=== PATIENT | male | born 1975 | race Caucasian/White ===

== ENCOUNTER 2018-09-13 16:08 | Observation (INO) ==
[2018-09-13] MEDS ORDERED: Aspirin 325 MG Tablet PO ONE (16:20)
--- NOTE | 2018-09-13 16:44 | XR ---
EXAM DATE: 09/13/2018 4:20 PM EDT AGE/SEX: 43 years / Male INDICATIONS: Chest pain. CLINICAL DATA: This is the patient's initial encounter. Patient reports that signs and symptoms have been present for 1 day and indicates a pain score of 8/10. MEDICAL/SURGICAL HISTORY: None. . Stents in heart. COMPARISON: No prior exams available for comparison. FINDINGS: A single AP view of the chest demonstrates the lungs to be symmetrically aerated without evidence of mass, infiltrate or effusion. The cardiomediastinal contours are unremarkable. Osseous structures a re intact. CONCLUSION: 1. No acute cardiopulmonary disease. Electronically signed by: Carmelo Alvarez MD 09/13/2018 4:43 PM EDT
[2018-09-13 17:07] LABS: Baso # (Auto) 0.1 th/mm3 (0.0-0.2); Baso % (Auto) 1.2 % (0.0-2.0); Eos # (Auto) 0.8 th/mm3 (0.0-0.4); Eos % (Auto) 9.3 % (0.0-4.0); Hematocrit 37.2 % (39.0-51.0); Hemoglobin 13.2 gm/dL (13.0-17.0); Lymph # (Auto) 1.6 th/mm3 (1.0-4.8); Lymph % (Auto) 18.7 % (9.0-44.0); Mean Corpuscular HGB Conc 35.6 % (32.0-36.0); Mean Corpuscular Hemoglobin 35.3 pg (27.0-34.0); Mean Corpuscular Volume 99.2 fL (80.0-100.0); Mean Platelet Volume 7.9 fL (7.0-11.0); Mono # (Auto) 0.4 th/mm3 (0.0-0.9); Mono % (Auto) 4.7 % (0.0-8.0); Neut # (Auto) 5.5 th/mm3 (1.8-7.7); Neut % (Auto) 66.1 % (16.0-70.0); Platelet Count 203 th/mm3 (150-450); Red Blood Count 3.75 mil/mm3 (4.50-5.90); Red Cell Distribution Width 13.5 % (11.6-17.2); White Blood Count 8.3 th/mm3 (4.0-11.0)
[2018-09-13 17:20] LABS: Activated Partial Thrombo Time 29.4 sec (24.3-30.1)
[2018-09-13 17:22] LABS: D-Dimer 0.61 mg/L FEU (0.00-0.50)
[2018-09-13 17:30] LABS: Albumin 3.3 g/dL (3.4-5.0); Anion Gap 9 meq/L (5-15); Aspartate Aminotransferase 18 U/L (15-37); Blood Urea Nitrogen 5 mg/dL (7-18); Calcium 8.4 mg/dL (8.5-10.1); Chloride 108 meq/L (98-107); Glomerular Filtration Rate 79 mL/min (>89); Glucose,Random 111 mg/dL (74-106); Potassium 3.7 meq/L (3.5-5.1); Sodium 141 meq/L (136-145)
[2018-09-13 17:36] LABS: Alanine Aminotransferase 23 U/L (12-78); Alkaline Phosphatase 96 U/L (45-117); Creatine Kinase 150 U/L (39-308); Total Protein 7.2 g/dL (6.4-8.2)
[2018-09-13 17:48] LABS: Creatine Kinase MB 1.4 ng/mL (0.5-3.6)
--- NOTE | 2018-09-13 18:01 | ED ---
HPI General Chief Complaint: Chest Pain Stated Complaint: chest pain Time Seen by Provider: 09/13/18 16:17 Source: patient Mode of arrival: ambulatory Limitations: no limitations History of Present Illness HPI narrative: 43-year-old male the presents to the ED for evaluation of chest pain. Patient comes here by private vehicle for evaluation of this. Per patient he is from [place] and on December of last year he had a stent put on his heart. Per patient is was done in [place]. Per patient he came here 2 weeks ago looking for work. Per patient he has been having chest pains on and off since yesterday. He denies any injury or trauma. He denies any drug use. He states that the pain causes some shortness of breath. Per patient he is concerned because of the history of stents to his hand. He denies any headache. Per patient he does take blood pressure and cholesterol medications. Has not taken anything for this. He did stated that he took a baby aspirin today. Denies any urinary bowel movement issues. No trauma. No fevers chills or sweats. No cough or runny nose. Related Data Home Medications Medication Instructions Recorded Confirmed aspirin [Aspirin Low Dose] 81 mg PO DAILY 09/13/18 09/13/18 atorvastatin 40 mg PO DAILY 09/13/18 09/13/18 Allergies Allergy/AdvReac Type Severity Reaction Status Date / Time Fish Containing Products Allergy Anaphylaxis Verified 09/13/18 16:32 Review of Systems ROS: all other systems reviewed are negative [facility] Medical History Medical History High cholesterol (Acute) Myocardial infarction (Acute) Social History Social History Substance History: Active Abuse Second Hand Smoke Exposure: No Smoking Status: Current every day smoker Tobacco Type: Cigarettes How Often Do You Have a Drink Containing Alcohol: Monthly or less Recent Travel in [facility] within the Last 8 Weeks: No Recent Out of Country Travel within the Last 8 Weeks: No Substance Abuse Detail Marijuana: Substance Use Status: Active Immunization History Tetanus Immunization: <5 Years Exam Narrative Exam Narrative: GENERAL: well appearing SKIN: Focused skin assessment warm/dry. HEAD: Atraumatic. Normocephalic. EYES: Pupils equal and round. No scleral icterus. No injection or drainage. ENT: No nasal bleeding or discharge. Mucous membranes pink and moist. Tongue is midline. No uvula deviation. NECK: Trachea midline. No JVD. CARDIOVASCULAR: Regular rate and rhythm. No murmur appreciated. RESPIRATORY: No accessory muscle use. Clear to auscultation. Breath sounds equal bilaterally. GASTROINTESTINAL: Abdomen soft, non-tender, nondistended. Hepatic and splenic margins not palpable. MUSCULOSKELETAL: No obvious deformities. No clubbing. No cyanosis. No edema. Full range of motion of the upper and lower extremities bilaterally. 2+ pulses bilaterally. NEUROLOGICAL: Awake and alert. No obvious cranial nerve deficits. Motor grossly within normal limits. Normal speech. PSYCHIATRIC: Appropriate mood and affect; insight and judgment normal. Course Initial Documented Vital Signs Temperature 97.8 F 09/13/18 16:14 Pulse Rate 91 H 09/13/18 16:14 Respiratory Rate 20 09/13/18 16:14 Blood Pressure 137/88 09/13/18 16:14 Pulse Oximetry 98 09/13/18 16:14 Last Documented Vital Signs Temperature 98.3 F 09/14/18 04:25 Pulse Rate 45 L 09/14/18 04:25 Respiratory Rate 19 09/14/18 04:25 Blood Pressure 116/67 09/14/18 04:25 Pulse Oximetry 96 09/14/18 04:25 Medical Decision Making MDM Narrative Medical decision making narrative: 43-year-old male the presents to the ED for evaluation of chest pain. Patient was properly examined and was found to have signs and symptoms consistent with chest pain. Labs and imaging ordered. Patient given nitro and aspirin. Labs and imaging showed no sign of acute disease alert and positive d-dimer. CTA was done. CTA does show chronic disease. At this time recommendations for admission for the chest pain center for further evaluation and treatment. Patient agrees with admission. Patient was admitted to chest pain center by hi. Orders placed by hi. Medical Screen Exam Complete: Yes Emergency Medical Condition: Yes Differential Diagnosis Differential Diagnosis: Chest pain versus typical chest pain versus PE versus ACS Medical Records Medical records reviewed: Yes I reviewed the patient's medical records. Lab Data Lab results reviewed: Yes I reviewed the patient's lab results. Lab results narrative: trop and CKMB negative d-dimmer elevated Result diagrams: 09/13/18 16:31 09/13/18 16:31 Lab Results 09/13/18 09/13/18 09/13/18 Range/Units 16:31 16:31 16:31 WBC 8.3 (4.0-11.0) th/mm3 RBC 3.75 L (4.50-5.90) mil/mm3 Hgb 13.2 (13.0-17.0) gm/dL Hct 37.2 L (39.0-51.0) % MCV 99.2 (80.0-100.0) fL MCH 35.3 H (27.0-34.0) pg MCHC 35.6 (32.0-36.0) % RDW 13.5 (11.6-17.2) % Plt Count 203 (150-450) th/mm3 MPV 7.9 (7.0-11.0) fL Neut % (Auto) 66.1 (16.0-70.0) % Lymph % (Auto) 18.7 (9.0-44.0) % [place] % (Auto) 4.7 (0.0-8.0) % Eos % (Auto) 9.3 H (0.0-4.0) % Baso % (Auto) 1.2 (0.0-2.0) % Neut # (Auto) 5.5 (1.8-7.7) th/mm3 Lymph # (Auto) 1.6 (1.0-4.8) th/mm3 [place] # (Auto) 0.4 (0.0-0.9) th/mm3 Eos # (Auto) 0.8 H (0.0-0.4) th/mm3 Baso # (Auto) 0.1 (0.0-0.2) th/mm3 WBC Differential . Differential Comment Auto diff final PT 10.0 (9.8-11.6) sec INR 1.0 Ratio APTT 29.4 (24.3-30.1) sec D-Dimer Quant (PE/DVT) 0.61 H (0.00-0.50) mg/L FEU Sodium 141 (136-145) meq/L Potassium 3.7 (3.5-5.1) meq/L Chloride 108 H (98-107) meq/L Carbon Dioxide 24.0 (21.0-32.0) meq/L Anion Gap 9 (5-15) meq/L BUN 5 L (7-18) mg/dL Creatinine 1.04 (0.60-1.30) mg/dL Estimated GFR 79 L (>89) mL/min Random Glucose 111 H (74-106) mg/dL Calcium 8.4 L (8.5-10.1) mg/dL Total Bilirubin 0.3 (0.2-1.0) mg/dL AST 18 (15-37) U/L ALT 23 (12-78) U/L Alkaline Phosphatase 96 (45-117) U/L Total Creatine Kinase 150 (39-308) U/L CK-MB (CK-2) 1.4 (0.5-3.6) ng/mL Troponin I Less than 0.02 L (0.02-0.05) ng/mL B-Natriuretic Peptide (0-100) pg/mL Total Protein 7.2 (6.4-8.2) g/dL Albumin 3.3 L (3.4-5.0) g/dL 09/13/18 09/13/18 09/13/18 Range/Units 16:31 19:45 23:40 WBC (4.0-11.0) th/mm3 RBC (4.50-5.90) mil/mm3 Hgb (13.0-17.0) gm/dL Hct (39.0-51.0) % MCV (80.0-100.0) fL MCH (27.0-34.0) pg MCHC (32.0-36.0) % RDW (11.6-17.2) % Plt Count (150-450) th/mm3 MPV (7.0-11.0) fL Neut % (Auto) (16.0-70.0) % Lymph % (Auto) (9.0-44.0) % [place] % (Auto) (0.0-8.0) % Eos % (Auto) (0.0-4.0) % Baso % (Auto) (0.0-2.0) % Neut # (Auto) (1.8-7.7) th/mm3 Lymph # (Auto) (1.0-4.8) th/mm3 [place] # (Auto) (0.0-0.9) th/mm3 Eos # (Auto) (0.0-0.4) th/mm3 Baso # (Auto) (0.0-0.2) th/mm3 WBC Differential Differential Comment PT (9.8-11.6) sec INR Ratio APTT (24.3-30.1) sec D-Dimer Quant (PE/DVT) (0.00-0.50) mg/L FEU Sodium (136-145) meq/L Potassium (3.5-5.1) meq/L Chloride (98-107) meq/L Carbon Dioxide (21.0-32.0) meq/L Anion Gap (5-15) meq/L BUN (7-18) mg/dL Creatinine (0.60-1.30) mg/dL Estimated GFR (>89) mL/min Random Glucose (74-106) mg/dL Calcium (8.5-10.1) mg/dL Total Bilirubin (0.2-1.0) mg/dL AST (15-37) U/L ALT (12-78) U/L Alkaline Phosphatase (45-117) U/L Total Creatine Kinase 133 107 (39-308) U/L CK-MB (CK-2) (0.5-3.6) ng/mL Troponin I Less than 0.02 L Less than 0.02 L (0.02-0.05) ng/mL B-Natriuretic Peptide 5 (0-100) pg/mL Total Protein (6.4-8.2) g/dL Albumin (3.4-5.0) g/dL Imaging Data Attestation: I personally reviewed and interpreted this imaging study as follows : Radiologist's impression: Chest X-Ray 09/13/18 16:20 CONCLUSION: 1. No acute cardiopulmonary disease. Chest CTA 09/13/18 17:39 CONCLUSION: 1. No CT evidence for pulmonary artery embolism as questioned. 2. Right lung base granuloma and calcified hilar nodes consistent with prior granulomatous disease. 3. Patchy mild groundglass opacities in the lower lobes bilaterally which may reflect atelectasis. 4. Prominent coronary artery calcifications. ECG Data Attestation: I personally reviewed and interpreted this ECG as follows: Interpretation: EKG shows sinus rhythm with no sign of acute ischemia and arrhythmia. Read by me and attending. Ventricular rate of 61 bpm, OK interval of [address] elevations noted on EKG. Discharge Plan Discharge Disposition Patient Disposition: 30 Still Patient Discharge Details Diagnosis: Chest pain Physicians Team ED Provider: Heather Jeronimo ED Midlevel Provider: Robert Potter Primary Care Provider: Primary Care Kimberly June Attending Provider: Brad Nick ED Status: Left Department Discharge Information Discharge Date/Time: 09/13/18 20:42
[2018-09-13] MEDS ORDERED: Morphine Inj 4 MG/ML Vial IV.PUSH ONE (18:33)
--- NOTE | 2018-09-13 19:04 | CT ---
EXAM DATE: 09/13/2018 5:47 PM EDT AGE/SEX: 43 years / Male INDICATIONS: Chest pain. CLINICAL DATA: This is the patient's initial encounter. Patient reports that signs and symptoms have been present for 1 day and indicates a pain score of 8/10. MEDICAL/SURGICAL HISTORY: Cardiovascular disease. None. RADIATION DOSE: 9.58 CTDI (mGy) COMPARISON: [facility], CHEST 1V SINGLE AP, 09/13/2018. . TECHNIQUE: Volumetric scanning was performed using a multi-row detector CT scanner during bolus infu dontae of 75 ml Omnipaque 350 (iohexol) nonionic water-soluble contrast as a single exam dose. The tanvi a was post processed with a variety of visualization algorithms including full volume maximum intensi ty projection and sliding thin slab reformation. Using automated exposure control and adjustment of the mA and/or kV according to patient size, radiation dose was kept as low as reasonably achievable t o obtain optimal diagnostic quality images. DICOM format image data is available electronically for review and comparison. FINDINGS: Pulmonary Arteries: No filling defects are seen in the pulmonary arteries through the segmental vess els. The main pulmonary artery is normal in diameter. Lung: Patchy mild groundglass opacities in the lower lobes bilaterally. Densely calcified granuloma at the right lung base. Pleura: No effusion, significant pleural thickening or pneumothorax. Mediastinum: Heart is unremarkable without pericardial effusion. Prominent coronary artery calcifica tions. Multiple calcified and subcentimeter mediastinal and hilar nodes.. Osseous Structures: No abnormal focal lytic or blastic bony lesions. Other: Visulaized upper abdomen is unremarkable. CONCLUSION: 1. No CT evidence for pulmonary artery embolism as questioned. 2. Right lung base granuloma and calcified hilar nodes consistent with prior granulomatous disease. 3. Patchy mild groundglass opacities in the lower lobes bilaterally which may reflect atelectasis. 4. Prominent coronary artery calcifications. Electronically signed by: Carmelo Alvarez MD 09/13/2018 7:03 PM EDT
[2018-09-13] MEDS ORDERED: Morphine Inj 4 MG/ML Vial IV.PUSH PRN (19:14)
[2018-09-13] MEDS ORDERED: Acetaminophen 500 MG Tablet PO PRN (19:14)
[2018-09-13 20:46] LABS: Creatine Kinase 133 U/L (39-308)
[2018-09-14 00:22] LABS: Creatine Kinase 107 U/L (39-308)
--- NOTE | 2018-09-14 10:31 | P.HPCA ---
History of Present Illness Primary Care Physician: No Primary Care Physician Chief Complaint: Chest pain History of Present Illness: This is a 43-year-old male with history of CAD status post stenting December 2016 while in [place] that presents to ED with complaint of chest discomfort that concerned him secondary to being similar to the pressure had when eating stenting. States that he had an OH in December 17 first episode of discomfort since then was last Friday. 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 Developed similar pressure less about 30 minutes which really concerned him but the discomfort resolved after stopping activity and he just forgot about it. Discomfort recurred 2 days ago while also at work and would last about 20 minutes to an hour but recurred a few times. Then yesterday the discomfort occurred and lasted all day without resolution. Current discomfort is 4 out of 10. Worse level is 8 out of 10. Denies associated shortness breath, nausea, diaphoresis. Cannot recall having stress testing since the stent. Continues to smoke cigarettes but has decreased the amount to about half pack a day. Hyperlipidemia, CAD with stent, tobacco abuse. Denies diabetes. Currently smoking about 1/2 pack of cigarettes daily for 3 months but was smoking 2 pack a day for 20 years. Denies alcohol. Smokes marijuana regularly. Denies family history of CAD. - Diagnosis (1) Chest pain (2) CAD (coronary artery disease) (3) History of heart artery stent (4) Hypertension (5) Hyperlipidemia (6) Tobacco abuse Review of Systems General: Patient denies fevers, chills, and recent travel. HEENT: Patient denies headache, sore throat, difficulty swallowing. Cardiovascular: Has the chest discomfort as mentioned above. Denies sensation of heart beating rapidly or irregularly. No syncope. Respiratory: Denies shortness of breath or inspirational chest discomfort. Denies coughing wheezing or hemoptysis. GI: Patient denies nausea, vomiting, diarrhea, abdominal pain, bloody stools. Musculoskeletal: Patient denies joint pain or edema. Denies calf pain or edema. Neurovascular: Patient denies numbness, tingling, weakness in extremities. Denies headache. Endocrine: Denies polyuria and polydipsia. Hematologic: Denies easy bruising. Skin: Denies rash or itching. PMFSH - History History Provided By: Patient - Medical History Medical History: Medical History (Last Reviewed 09/13/18 @ 17:59 by AILYN Peng) High cholesterol Myocardial infarction - Tobacco History Second Hand Smoke Exposure: No Tobacco Use In Past 30 Days: Yes Smoking Status: Current every day smoker Tobacco Type: Cigarettes - Alcohol History How Often Do You Have a Drink Containing Alcohol: Monthly or less - Substance Use History Substance History: Active Abuse - Substance Use Type Marijuana Status: Active Route Used: Inhalation Reason for Use: Get High - Travel History Recent Travel in the [place] Within the Last 8 Weeks: No Recent Travel Out of the Country Within the Last 8 Weeks: No - Immunization History Tetanus Immunization: <5 Years Medications and Allergies Active Medications: Active Medications Acetaminophen (Tylenol) 500 mg PO Q4H PRN PRN Reason: HEADACHE Hydrocodone Bitart/Acetaminophen ([place] 7.5/325) 1 tab PO Q4H PRN PRN Reason: PAIN SCALE 1 TO 7 Aspirin (Ecotrin) 81 mg PO DAILY [facility], [facility]1983 Last Admin: 09/14/18 10:03 Dose: 81 mg Atorvastatin Calcium (Lipitor) 40 mg PO DAILY [facility], [facility]1983 Last Admin: 09/14/18 10:03 Dose: 40 mg Morphine Sulfate (Morphine Inj) 2 mg IV.PUSH Q4H PRN PRN Reason: PAIN SCALE 8 TO 10 Last Admin: 09/13/18 22:50 Dose: 2 mg Ondansetron HCl (Zofran Inj) 4 mg IV.PUSH Q6H PRN PRN Reason: NAUSEA Sodium Chloride (Ns Flush) 2 ml IV.FLUSH UNSCH PRN PRN Reason: FLUSH AFTER USING IV ACCESS Sodium Chloride (Ns Flush) 2 ml IV.FLUSH BID [facility], [facility]1983 Last Admin: 09/14/18 08:56 Dose: 2 ml Sodium Chloride (Ns Flush) 2 ml IV.FLUSH PRN PRN PRN Reason: FLUSH AFTER USING IV ACCESS Allergies Allergy/AdvReac Type Severity Reaction Status Date / Time Fish Containing Products Allergy Anaphylaxis Verified 09/13/18 16:32 Home Medications Medication Instructions Recorded Confirmed Type aspirin [Aspirin Low Dose] 81 mg PO DAILY 09/13/18 09/13/18 History atorvastatin 40 mg PO DAILY 09/13/18 09/13/18 History Exam Vital signs: Vital Signs 09/13/18 16:14 09/13/18 16:16 09/13/18 17:03 Temperature 97.8 F Pulse Rate 91 H 62 Respiratory Rate 20 Blood Pressure 137/88 136/91 H Pulse Oximetry 98 99 99 09/13/18 18:40 09/13/18 20:00 09/13/18 23:00 Temperature 98.0 F Pulse Rate 65 54 L 65 Respiratory Rate 18 18 Blood Pressure 117/73 122/70 Pulse Oximetry 98 96 09/14/18 00:00 09/14/18 01:10 09/14/18 03:36 Temperature 98.4 F Pulse Rate 48 L 45 L Respiratory Rate 18 15 Blood Pressure 119/59 L Pulse Oximetry 97 09/14/18 03:51 09/14/18 04:25 09/14/18 08:00 Temperature 98.3 F 98.2 F Pulse Rate 45 L 45 L 43 L Respiratory Rate 19 18 Blood Pressure 116/67 133/70 Pulse Oximetry 96 96 09/14/18 08:13 Temperature Pulse Rate Respiratory Rate Blood Pressure Pulse Oximetry 96 Intake & Output 09/13/18 09/14/18 09/14/18 18:59 06:59 18:59 Weight 77.564 kg 77.58 kg Other: Date of Last Bowel Movement 09/13/18 Weight On Admission 77.564 kg Narrative: GENERAL: This is a well-nourished, well-developed patient, in no apparent distress. Patient speaks in clear complete sentences. Patient is pleasant. HEENT: Head is atraumatic and normocephalic. Neck is supple without lymphadenopathy and trachea is midline. No JVD or carotid bruits. CARDIOVASCULAR: Regular rate and rhythm without murmurs, gallops, or rubs. RESPIRATORY: Clear to auscultation. Breath sounds equal bilaterally. No wheezes , rales, or rhonchi. Chest wall is nontender. No use of accessory muscles. GASTROINTESTINAL: Abdomen is nontender, nondistended. Abdomen soft. No obvious pulsatile mass or bruit. No CVA tenderness. Strong femoral pulses bilaterally. Normal bowel sounds in all quadrants. MUSCULOSKELETAL: Patient is moving upper and lower extremities freely. No calf tenderness or edema, no Homans sign. Strong pulses in upper and lower extremities. NEUROLOGICAL: Patient is alert and oriented. Cranial nerves 2-12 are grossly intact. No focal deficits and speech is clear. SKIN: No rash and turgor is normal. Results 09/13/18 16:31 09/13/18 16:31 Cardiac Enzymes 09/13/18 09/13/18 09/13/18 Range/Units 16:31 16:31 19:45 AST 18 (15-37) U/L CK-MB (CK-2) 1.4 (0.5-3.6) ng/mL Troponin I Less than 0.02 L Less than 0.02 L (0.02-0.05) ng/mL B-Natriuretic Peptide 5 (0-100) pg/mL 09/13/18 Range/Units 23:40 AST (15-37) U/L CK-MB (CK-2) (0.5-3.6) ng/mL Troponin I Less than 0.02 L (0.02-0.05) ng/mL B-Natriuretic Peptide (0-100) pg/mL Coagulation 09/13/18 09/13/18 Range/Units 16:31 16:31 PT 10.0 (9.8-11.6) sec APTT 29.4 (24.3-30.1) sec B-Natriuretic Peptide 5 (0-100) pg/mL CBC 09/13/18 Range/Units 16:31 WBC 8.3 (4.0-11.0) th/mm3 RBC 3.75 L (4.50-5.90) mil/mm3 Hgb 13.2 (13.0-17.0) gm/dL Hct 37.2 L (39.0-51.0) % Plt Count 203 (150-450) th/mm3 Neut # (Auto) 5.5 (1.8-7.7) th/mm3 Lymph # (Auto) 1.6 (1.0-4.8) th/mm3 [place] # (Auto) 0.4 (0.0-0.9) th/mm3 Eos # (Auto) 0.8 H (0.0-0.4) th/mm3 Baso # (Auto) 0.1 (0.0-0.2) th/mm3 Comprehensive Metabolic Panel 09/13/18 Range/Units 16:31 Sodium 141 (136-145) meq/L Potassium 3.7 (3.5-5.1) meq/L Chloride 108 H (98-107) meq/L Carbon Dioxide 24.0 (21.0-32.0) meq/L BUN 5 L (7-18) mg/dL Creatinine 1.04 (0.60-1.30) mg/dL Calcium 8.4 L (8.5-10.1) mg/dL AST 18 (15-37) U/L ALT 23 (12-78) U/L Alkaline Phosphatase 96 (45-117) U/L Total Protein 7.2 (6.4-8.2) g/dL Albumin 3.3 L (3.4-5.0) g/dL Intake and Output 09/13/18 09/14/18 09/14/18 22:59 06:59 14:59 Other: Date of Last Bowel Movement 09/13/18 Weight 77.564 kg 77.58 kg Weight On Admission 77.564 kg - Imaging and Cardiology Imaging: Impressions Chest X-Ray 09/13/18 16:20 CONCLUSION: 1. No acute cardiopulmonary disease. Chest CTA 09/13/18 17:39 CONCLUSION: 1. No CT evidence for pulmonary artery embolism as questioned. 2. Right lung base granuloma and calcified hilar nodes consistent with prior granulomatous disease. 3. Patchy mild groundglass opacities in the lower lobes bilaterally which may reflect atelectasis. 4. Prominent coronary artery calcifications. EKG interpretations - EKG EKG shows: bradycardia (EKGs are sinus bradycardia without significant ST segment depressions or elevations.) Caprini VTE Risk Assessment Caprini VTE Risk Assessment: No/Low Risk (score <= 1) Caprini Risk Assessment Model: Point Value = 1 Point Value = 2 Point Value = 3 Point Value = 5 Age 41-60 Minor surgery BMI > 25 kg/m2 Swollen legs Varicose veins or History of unexplained or recurrent spontaneous Oral contraceptives or hormone replacement Sepsis (< 1 month) Serious lung disease, including pneumonia (< 1 month) Abnormal pulmonary function Acute myocardial infarction Congestive heart failure (< 1 month) History of inflammatory bowel disease Medical patient at bed rest Age 61-74 Arthroscopic surgery Major open surgery (> 45 min) Laparoscopic surgery (> 45 min) Malignancy Confined to bed (> 72 hours) Immobilizing plaster cast Central venous access Age >= 75 History of VTE Family history of VTE Factor V Leiden Prothrombin [id number] Lupus anticoagulant Anticardiolipin antibodies Elevated serum homocysteine Heparin-induced thrombocytopenia Other congenital or acquired thrombophilia Stroke (< 1 month) Elective arthroplasty Hip, pelvis, or leg fracture Acute spinal cord injury (< 1 month) Prophylaxis Regimen: Total Risk Factor Score Risk Level Prophylaxis Regimen 0-1 Low Early ambulation 2 Moderate Order ONE of the following: *Sequential Compression Device (SCD) *Heparin 5000 units SQ BID 3-4 Higher Order ONE of the following medications: *Heparin 5000 units SQ TID *Enoxaparin/Lovenox 40 mg SQ daily (WT < 150 kg, CrCl > 30 mL/min) *Enoxaparin/Lovenox 30 mg SQ daily (WT < 150 kg, CrCl > 10-29 mL/min) *Enoxaparin/Lovenox 30 mg SQ BID (WT < 150 kg, CrCl > 30 mL/min) AND/OR *Sequential Compression Device (SCD) 5 or more Highest Order ONE of the following medications: *Heparin 5000 units SQ TID (Preferred with Epidurals) *Enoxaparin/Lovenox 40 mg SQ daily (WT < 150 kg, CrCl > 30 mL/min) *Enoxaparin/Lovenox 30 mg SQ daily (WT < 150 kg, CrCl > 10-29 mL/min) *Enoxaparin/Lovenox 30 mg SQ BID (WT < 150 kg, CrCl > 30 mL/min) AND *Sequential Compression Device (SCD) Assessment and Plan - Assessment (1) Chest pain Code(s): R07.9 - Chest pain, unspecified Status: Acute (2) CAD (coronary artery disease) Code(s): I25.10 - Atherosclerotic heart disease of solomon coronary artery without angina pectoris Status: Acute (3) History of heart artery stent Code(s): Z95.5 - Presence of coronary angioplasty implant and graft Status: Acute (4) Hypertension Code(s): I10 - Essential (primary) hypertension Status: Acute (5) Hyperlipidemia Code(s): E78.5 - Hyperlipidemia, unspecified Status: Acute (6) Tobacco abuse Code(s): Z72.0 - Tobacco use Status: Acute - Plan * Chest pain: Patient has had serial cardiac enzymes and EKGs for ruling out purposes. He will be seen by Dr. Nick of cardiology and chest pain center. He will undergo a Lexiscan. Further plan pending results. But if negative will be discharged home with instructions to follow-up PCP and follow-up with outpatient wind operations supervisor. Return to ED for interval issues. * CAD: Patient has history of stent. To be reassessed with stress testing. * Hyperlipidemia: Continue medication. * Tobacco abuse: Patient counseled on importance of smoking cessation. Patient is stable at this time. He is agreeable to this plan. H&P: Quality - VTE Deep Vein Thrombosis/Pulmonary Embolism Present on Admission: No (1) Chest pain Qualifiers: Chest pain type: other chest pain Qualified Code(s): R07.89 - Other chest pain; R07.8 - Other chest pain
[2018-09-14] MEDS ORDERED: Regadenoson Inj 0.4 MG/5 ML Syringe IV.PUSH ONE (10:59)
[2018-09-14 11:53] VITALS: BP 129/70; PULSE 47; RESP 16; TEMP 98; O2SAT 100
--- NOTE | 2018-09-14 12:14 | NM ---
EXAM DATE: 09/14/2018 10:45 AM EDT AGE/SEX: 43 years / Male INDICATIONS:Angina. Myocardial infarction Chest pain with dyspnea. CLINICAL DATA: This is the patient's initial encounter. Patient reports that signs and symptoms have been present for 2 days and indicates a pain score of 6/10. MEDICAL/SURGICAL HISTORY: Hypercholesterolemia. Coronary artery stent. COMPARISON: No prior exams available for comparison. DOSE: 8.8 mCi Tc 99m Myoview at rest 25.4 mCi [id number] at stress 0.4 mg Lexiscan STRESS SYMPTOMS: Dyspnea and chest pain. EJECTION FRACTION: 52 % TECHNIQUE: The patient underwent pharmacologic stress with infusion of prescribed dose. Continuous ECG tracing was monitored during stress. Gated SPECT imaging was performed after stress and conventi onal SPECT imaging was performed at rest. The examination was performed on a SPECT/CT scanner, both attenuation and non-corrected datasets were reviewed. FINDINGS: Distribution: The maximum perfused segment at stress is in the lateral wall. Perfusion Study: The pattern of perfusion at stress is within normal limits. Gated Study: There are intact wall motion and wall thickening without hypokinetic or dyskinetic segm ents. The ejection fraction is calculated at 52%. RISK CATEGORY: Low (<1% Annual Motality Rate) CONCLUSION: 1. No definite reversible perfusion defects are identified to suggest stress-induced myocardial isch emia. Electronically signed by: Bobby Vanegas MD 09/14/2018 12:13 PM EDT
--- NOTE | 2018-09-14 14:17 | TR ---
Date Performed: 09/14/2018 Time Performed: 10:55:29 DOCTOR: Brad Nick DRUG LIST: CLINICAL HISTORY: REASON FOR TEST: CHEST PAIN REASON FOR ENDING: OBSERVATION: CONCLUSION: COMMENTS: Lexiscan stress test was performed under standard four minute protocol. Radionuclide was injected one minute prior to ending the test. No electrocardiographic abormalities were present t o suggest ischemia. Nuclear imaging and interpretation are pending.
--- NOTE | 2018-09-14 14:22 | ECG ---
Date Performed: 09/13/2018 Time Performed: 22:11:38 PTAGE: 43 years EKG: SINUS BRADYCARDIA POSSIBLE RIGHT VENTRICULAR CONDUCTION DELAY BORDERLINE ECG PREVIOUS TRACING : 09/13/2018 19.49 Since previous tracing, no significant change noted DOCTOR: Brad Nick Interpretating Date/Time 09/14/2018 14:21:52
--- NOTE | 2018-09-14 14:23 | ECG ---
Date Performed: 09/13/2018 Time Performed: 19:49:54 PTAGE: 43 years EKG: SINUS BRADYCARDIA POSSIBLE RIGHT VENTRICULAR CONDUCTION DELAY BORDERLINE ECG PREVIOUS TRACING : 09/13/2018 16.28 Since previous tracing, no significant change noted DOCTOR: Brad Nick Interpretating Date/Time 09/14/2018 14:22:41
--- NOTE | 2018-09-14 14:25 | ECG ---
Date Performed: 09/13/2018 Time Performed: 16:28:48 PTAGE: 43 years EKG: Sinus rhythm WITH SINUS ARRHYTHMIA POSSIBLE RIGHT VENTRICULAR CONDUCTION DELAY BORDERLINE ECG NO PREVIOUS TRACING DOCTOR: Brad Nick Interpretating Date/Time 09/14/2018 14:24:12
== END 2018-09-14 14:47 | disposition home or self-care (01) ==
LOC: NEPC 16:08 → NEDA 16:08 → NEPGCP 20:44

== ENCOUNTER 2018-09-22 16:48 | Inpatient (IN) ==
[2018-09-22] MEDS ORDERED: Aluminum/Magnesium/Simethacone Susp 30 ML UDC PO PRN (19:50)
[2018-09-22] MEDS ORDERED: Bisacodyl 10 MG Supp RECTAL PRN (19:50)
[2018-09-23] MEDS: Senna/Docusate Sodium 8.6/50 MG Tablet PO SCH ×2 (00:39→08:26)
[2018-09-23 07:45] LABS: Anion Gap 4 meq/L (5-15); Blood Urea Nitrogen 15 mg/dL (7-18); Calcium 8.4 mg/dL (8.5-10.1); Carbon Dioxide 27.7 meq/L (21.0-32.0); Chloride 107 meq/L (98-107); Glomerular Filtration Rate Greater Than 89 mL/min (>89); Glucose,Random 81 mg/dL (74-106); Potassium 4.2 meq/L (3.5-5.1); Sodium 139 meq/L (136-145)
[2018-09-23 07:47] LABS: Cholesterol 155 mg/dL (120-200); Triglycerides 100 mg/dL (42-150)
[2018-09-23 07:49] LABS: Chol/HDL Ratio 3.71 Ratio; HDL Cholesterol 41.7 mg/dL (40.0-60.0); LDL Cholesterol,Calculated 93 mg/dL (0-99)
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
[2018-09-23 16:48] LABS: Baso # (Auto) 0.1 th/mm3 (0.0-0.2); Baso % (Auto) 1.4 % (0.0-2.0); Eos # (Auto) 0.6 th/mm3 (0.0-0.4); Eos % (Auto) 8.3 % (0.0-4.0); Hematocrit 42.9 % (39.0-51.0); Hemoglobin 14.5 gm/dL (13.0-17.0); Lymph # (Auto) 1.8 th/mm3 (1.0-4.8); Lymph % (Auto) 23.5 % (9.0-44.0); Mean Corpuscular HGB Conc 33.8 % (32.0-36.0); Mean Corpuscular Hemoglobin 33.9 pg (27.0-34.0); Mean Corpuscular Volume 100.5 fL (80.0-100.0); Mean Platelet Volume 7.5 fL (7.0-11.0); Mono # (Auto) 0.8 th/mm3 (0.0-0.9); Mono % (Auto) 10.8 % (0.0-8.0); Neut # (Auto) 4.3 th/mm3 (1.8-7.7); Platelet Count 266 th/mm3 (150-450); Red Blood Count 4.26 mil/mm3 (4.50-5.90); Red Cell Distribution Width 13.9 % (11.6-17.2); White Blood Count 7.6 th/mm3 (4.0-11.0)
[2018-09-23 20:45] LABS: Hemoglobin A1c 5.8 % (4.3-6.0)
[2018-09-23] MEDS: Prazosin HCl 1 MG Capsule PO SCH (21:13)
[2018-09-23] MEDS: Acetaminophen 325 MG Tablet PO PRN (21:13)
[2018-09-24] MEDS: Acetaminophen 325 MG Tablet PO PRN (12:03)
--- NOTE | 2018-09-24 12:03 | P.PNPSY ---
Subjective Chief Complaint: Jeronimo Act Remarks: Patient seen and examined. Chart reviewed. Case discussed with nursing staff. No behavioral issues noted overnight. On my examination today, the patient reports that his mood is a little better. He denies any suicidal ideation while he is in the hospital setting. He denies having any nightmares overnight. No side effects from medications besides possibly a mild, chiefly frontal headache without associated photo/phonophobia. He does report that he gets migraine headaches 2 or 3 times a month and usually takes Tylenol or Excedrin Migraine. No other physical complaints. Vital Signs Temp Pulse Resp BP Pulse Ox 09/24/18 05:49 98.1 F 59 L 16 125/67 98 09/23/18 22:10 16 09/23/18 19:13 97.5 F L 52 L 18 138/82 99 Intake and Output 09/23/18 09/24/18 09/24/18 22:59 06:59 14:59 Other: Weight 80.5 kg Laboratory Results - last 24 hr 09/23/18 09/23/18 09/23/18 06:36 06:36 06:36 WBC RBC Hgb Hct MCV MCH MCHC RDW Plt Count MPV Neut % (Auto) Lymph % (Auto) [place] % (Auto) Eos % (Auto) Baso % (Auto) Neut # (Auto) Lymph # (Auto) [place] # (Auto) Eos # (Auto) Baso # (Auto) WBC Differential Differential Comment Hemoglobin A1c 5.8 Vitamin B12 512 TSH 2.150 09/23/18 16:36 WBC 7.6 RBC 4.26 L Hgb 14.5 Hct 42.9 MCV 100.5 H MCH 33.9 MCHC 33.8 RDW 13.9 Plt Count 266 D MPV 7.5 Neut % (Auto) 56.0 Lymph % (Auto) 23.5 [place] % (Auto) 10.8 H Eos % (Auto) 8.3 H Baso % (Auto) 1.4 Neut # (Auto) 4.3 Lymph # (Auto) 1.8 [place] # (Auto) 0.8 Eos # (Auto) 0.6 H Baso # (Auto) 0.1 WBC Differential . Differential Comment Auto diff final Hemoglobin A1c Vitamin B12 TSH Labs reviewed. No anemia although macrocytosis persists. Vitamin B12 level is within normal limits. TSH is within normal limits. Review of Systems All other systems reviewed negative except as stated in HPI Mental Status Examination Appearance: Appropriate Consciousness: Alert Orientation: x4 Motor Activity: Other (No motoric abnormalities noted.) Speech: Unremarkable Language: Adequate Fund of Knowledge: Adequate Attention and Concentration: Adequate Memory: Unremarkable (Grossly intact on clinical exam) Mood: Other (Mood somewhat improved) Affect: Blunt Thought Process & Associations: Intact, Logical, Linear Thought Content: Appropriate Hallucination Type: None Delusion Type: None Suicidal Ideation: No Suicidal Plan: No Suicidal Intention: No Homicidal Ideation: No Homicidal Plan: No Homicidal Intention: No Insight: Fair Judgment: Impulsive Assessment and Plan - Assessment (1) Adjustment disorder with depressed mood Code(s): F43.21 - Adjustment disorder with depressed mood Status: Acute (2) Polysubstance abuse Code(s): F19.10 - Other psychoactive substance abuse, uncomplicated Status: Acute - Plan Plan: Continue current psychotropics as ordered. Could consider further titration of patient's Paxil. Tylenol available for headache pain as needed. Continue to monitor on the inpatient unit. Continue other medications and care as ordered. Justification for Continued Inpatient Stay: Monitoring for impairment in safety. Risk for decompensation in less restrictive environment. Discharge Planning: Pending psychiatric stabilization. Request Healthcare Surrogate/Guardian Advocate?: No
[2018-09-24] MEDS: Prazosin HCl 1 MG Capsule PO SCH (20:59)
[2018-09-24] MEDS: traZODone 50 MG Tablet PO PRN (20:59)
--- NOTE | 2018-09-25 12:18 | P.PNPSY ---
Subjective Chief Complaint: Jeronimo Act Remarks: Patient seen and examined with nurse. Chart reviewed. Case discussed with nursing staff. Case discussed in treatment team. Therapists note that patient is an active participant in all groups. On my examination today, the patient denies hearing his grandfather's voice today. He did have some nightmares overnight, and we discussed titration of prazosin for this. Mood continues to improve. No SI or HI. Denies side effects from medications besides ongoing mild headache, says that he often takes Naprosyn for headache on an outpatient basis. No other physical complaints. Vital Signs Temp Pulse Resp BP Pulse Ox 09/25/18 17:02 98.0 F 63 18 133/89 97 09/25/18 04:39 97.6 F 58 L 18 119/66 96 09/24/18 19:13 97.4 F L 85 16 125/72 97 Labs reviewed. No new labs. Review of Systems All other systems reviewed negative except as stated in HPI Mental Status Examination Appearance: Appropriate Consciousness: Alert Orientation: x4 Motor Activity: Other (No abnormal motor movements noted) Speech: Unremarkable Language: Adequate Fund of Knowledge: Adequate Attention and Concentration: Adequate Memory: Unremarkable (Grossly intact on clinical exam) Mood: Other (Mood improving) Affect: Blunt Thought Process & Associations: Intact, Logical, Linear Thought Content: Appropriate Hallucination Type: None Delusion Type: None Suicidal Ideation: No Suicidal Plan: No Suicidal Intention: No Homicidal Ideation: No Homicidal Plan: No Homicidal Intention: No Insight: Fair Judgment: Impulsive Assessment and Plan - Assessment (1) Adjustment disorder with depressed mood Code(s): F43.21 - Adjustment disorder with depressed mood Status: Acute (2) Polysubstance abuse Code(s): F19.10 - Other psychoactive substance abuse, uncomplicated Status: Acute - Plan Plan: Titrate prazosin to 2 mg at bedtime to target traumatic nightmares. Titrate Paxil over the weekend to 20 mg to target dysphoria and posttraumatic stress symptoms. I will add some Naprosyn as needed for headache, but need to ensure use of this agent remains judicious as he is also taking aspirin. Continue to monitor on the inpatient unit. Continue other medications and care as ordered. Justification for Continued Inpatient Stay: Medication changes. Discharge Planning: Anticipate discharge to sober living after the weekend. Request Healthcare Surrogate/Guardian Advocate?: No
--- NOTE | 2018-09-25 16:10 | P.TTN ---
- Patient Problems Problems: 1. Discharge planning 2. Medication compliance 3. Knowledge deficit 4. Lack of coping skills - Progress Toward Goals Provider Present: Dr. Karl Sena Provider Input: 09/25/18: Patient prescribed Paxil and Prazosin Nurse(s) Present: Janessa Nurse Input: 09/25/18: Treatment Cooperative, Med Compliant. Psychiatric Counselors Present: Jose Montilla Jr., [facility], Tiffany Fuller, [facility] Psychiatric Therapist Input: 09/25/18: Counselor dicussed discharge plan to [facility]. Group Spec/RT/OT/REYEZ Present: NORA Aleman Group Spec/RT/OT/REYEZ Input: 09/25/18: Patient attends the group activities on a regular basis. Pt is social and pleasant with peers. - Discharge Plan 09/25/18: Possible discharge to [facility] - Documentation Scribe: Idania Phipps Teaching Recipient: Patient
[2018-09-25] MEDS: Prazosin HCl 1 MG Capsule PO SCH (21:12)
[2018-09-25] MEDS: traZODone 50 MG Tablet PO PRN (21:13)
[2018-09-25] MEDS: Naproxen 500 MG Tablet PO PRN (21:50)
--- NOTE | 2018-09-26 15:46 | P.PNPSY ---
Subjective Chief Complaint: Jeronimo Act Remarks: Patient seen with nurse. Chart reviewed. Case discussed with nursing staff. Per nursing, patient denying suicidal ideation. Patient tells me he feels he is improving. He had no nightmares overnight with titration of prazosin. No reported side effects from medications. No physical complaints. Vital Signs Temp Pulse Resp BP Pulse Ox 09/26/18 05:48 97.8 F 50 L 17 116/59 L 97 09/25/18 17:02 98.0 F 63 18 133/89 97 Labs reviewed. No new labs. Review of Systems All other systems reviewed negative except as stated in HPI Mental Status Examination Appearance: Appropriate Consciousness: Alert Orientation: x4 Motor Activity: Normal gait, Other (No motoric abnormalities noted) Speech: Unremarkable Language: Adequate Fund of Knowledge: Adequate Attention and Concentration: Adequate Memory: Unremarkable (Grossly intact on clinical exam) Mood: Appropriate Affect: Appropriate Thought Process & Associations: Intact, Logical, Linear Thought Content: Appropriate Hallucination Type: None Delusion Type: None Suicidal Ideation: No Homicidal Ideation: No Insight: Fair Judgment: Impulsive Assessment and Plan - Assessment (1) Adjustment disorder with depressed mood Code(s): F43.21 - Adjustment disorder with depressed mood Status: Acute (2) Polysubstance abuse Code(s): F19.10 - Other psychoactive substance abuse, uncomplicated Status: Acute - Plan Plan: Continue increased dose of prazosin as ordered. Continue planned Paxil titration. Continue to monitor on the inpatient unit. Continue other medications and care as ordered. Justification for Continued Inpatient Stay: Medication changes planned. Discharge Planning: Anticipate discharge to sober living after the weekend. Request Healthcare Surrogate/Guardian Advocate?: No
[2018-09-26] MEDS: Prazosin HCl 1 MG Capsule PO SCH (20:23)
[2018-09-26] MEDS: traZODone 50 MG Tablet PO PRN (20:24)
[2018-09-26] MEDS: Naproxen 500 MG Tablet PO PRN (20:42)
--- NOTE | 2018-09-27 14:37 | P.PNPSY ---
Subjective Chief Complaint: Jeronimo Act Remarks: Chart reviewed and discussed with nursing staff. Patient states he is doing well and looking forward to going to [facility]. He denies any nightmares. States that he is feeling alot better and is starting to focus. Denies SI/HI. Denies AVH. Review of Systems All other systems reviewed negative except as stated in HPI Mental Status Examination Appearance: Appropriate Consciousness: Alert Orientation: x4 Motor Activity: Normal gait, Other (No motoric abnormalities noted) Speech: Unremarkable Language: Adequate Fund of Knowledge: Adequate Attention and Concentration: Adequate Memory: Unremarkable (Grossly intact on clinical exam) Mood: Appropriate Affect: Appropriate Thought Process & Associations: Intact, Logical, Linear Thought Content: Appropriate Hallucination Type: None Delusion Type: None Suicidal Ideation: No Suicidal Plan: No Suicidal Intention: No Homicidal Ideation: No Homicidal Plan: No Homicidal Intention: No Insight: Adequate Judgment: Adequate Assessment and Plan - Assessment (1) Adjustment disorder with depressed mood Code(s): F43.21 - Adjustment disorder with depressed mood Status: Acute - Plan Plan: Continue current treatment plan . Justification for Continued Inpatient Stay: Moving to a less restrictive environment may result in his decompensation. Request Healthcare Surrogate/Guardian Advocate?: No
[2018-09-27] MEDS: Prazosin HCl 1 MG Capsule PO SCH (21:26)
[2018-09-27] MEDS: Naproxen 500 MG Tablet PO PRN (21:27)
[2018-09-27] MEDS: traZODone 50 MG Tablet PO PRN (21:27)
[2018-09-28 05:12] VITALS: BP 136/64; PULSE 62; RESP 16; TEMP 97.8; O2SAT 96
[2018-09-28] MEDS ORDERED: Influenza (Quadrivalent) Vaccine 0.5 ML Syringe IM ONE (10:15)
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
[2018-09-28] MEDS: Naproxen 500 MG Tablet PO PRN (13:10)
== END 2018-09-28 14:10 | disposition home or self-care (01) ==
LOC: H270 18:26 → H260 09-23 16:45
PROVIDERS: ADMIT Psychiatry & Neurology Psychiatry; ATTEND Psychiatry & Neurology Psychiatry

== ENCOUNTER 2018-10-03 16:11 | Observation (INO) ==
[2018-10-03] MEDS ORDERED: Aspirin 325 MG Tablet PO ONE (16:20)
--- NOTE | 2018-10-03 16:21 | ED ---
HPI General Chief Complaint: Chest Pain Stated Complaint: chest pain Time Seen by Provider: 10/03/18 16:19 Source: patient Mode of arrival: ambulatory Limitations: no limitations History of Present Illness HPI narrative: 43-year-old male patient with previous history of AR a year ago, stenting, presents to the ER today because of substernal chest pains which she states feels like something sitting on his chest, currently a 7 out of 10, and started at work. Related Data Home Medications Medication Instructions Recorded Confirmed trazodone 100 mg PO HS 09/23/18 10/03/18 bupropion HCl [Wellbutrin XL] 150 mg PO QAM 10/03/18 10/03/18 hydroxyzine pamoate [Vistaril] 150 mg PO HS PRN 10/03/18 10/03/18 Previous Rx's Medication Instructions Recorded aspirin [Aspirin Low Dose] 81 mg PO DAILY 15 Days #15 tab 09/28/18 atorvastatin 40 mg PO HS 15 Days #15 tab 09/28/18 Allergies Allergy/AdvReac Type Severity Reaction Status Date / Time Fish Containing Products Allergy Anaphylaxis Verified 09/13/18 16:32 iodine Allergy Anaphylaxis Verified 09/22/18 19:03 FOR[facility]LY [facility], 1928–1983 Medical History Medical History Club foot of both lower extremities (Acute) High cholesterol (Acute) Myocardial infarction (Acute) Social History Social History Substance History: Active Abuse Second Hand Smoke Exposure: Yes Smoking Status: Current every day smoker Tobacco Type: Cigarettes How Often Do You Have a Drink Containing Alcohol: Never Recent Travel in [facility] within the Last 8 Weeks: No Recent Out of Country Travel within the Last 8 Weeks: No Substance Abuse Detail Marijuana: Route Used Substance Abuse: Inhalation Immunization History Tetanus Immunization: <5 Years Course Initial Documented Vital Signs Temperature 97.6 F 10/03/18 16:13 Pulse Rate 97 H 10/03/18 16:13 Respiratory Rate 22 10/03/18 16:13 Blood Pressure 167/98 H 10/03/18 16:13 Pulse Oximetry 99 10/03/18 16:13 Last Documented Vital Signs Temperature 97.6 F 10/03/18 16:13 Pulse Rate 68 10/03/18 17:03 Respiratory Rate 19 10/03/18 17:03 Blood Pressure 148/81 H 10/03/18 17:03 Pulse Oximetry 98 10/03/18 17:03 Medical Decision Making MDM Narrative Medical Screen Exam Complete: Yes Emergency Medical Condition: Yes Lab Data Lab results reviewed: Yes I reviewed the patient's lab results. Result diagrams: 10/03/18 16:24 10/03/18 16:24 Lab Results 10/03/18 10/03/18 Range/Units 16:24 16:24 WBC 8.4 (4.0-11.0) th/mm3 RBC 3.92 L (4.50-5.90) mil/mm3 Hgb 14.2 (13.0-17.0) gm/dL Hct 39.4 (39.0-51.0) % MCV 100.5 H (80.0-100.0) fL MCH 36.2 H (27.0-34.0) pg MCHC 36.0 (32.0-36.0) % RDW 13.8 (11.6-17.2) % Plt Count 186 D (150-450) th/mm3 MPV 7.7 (7.0-11.0) fL Prelim Diff (Auto) Slide review pending Neut % (Auto) 67.1 (16.0-70.0) % Lymph % (Auto) 22.8 (9.0-44.0) % Jewell % (Auto) 5.0 (0.0-8.0) % Eos % (Auto) 4.5 H (0.0-4.0) % Baso % (Auto) 0.6 (0.0-2.0) % Neut # (Auto) 5.6 (1.8-7.7) th/mm3 Lymph # (Auto) 1.9 (1.0-4.8) th/mm3 Jewell # (Auto) 0.4 (0.0-0.9) th/mm3 Eos # (Auto) 0.4 (0.0-0.4) th/mm3 Baso # (Auto) 0.1 (0.0-0.2) th/mm3 Differential Comment . Sodium 139 (136-145) meq/L Potassium 4.0 (3.5-5.1) meq/L Chloride 103 (98-107) meq/L Carbon Dioxide 28.2 (21.0-32.0) meq/L Anion Gap 8 (5-15) meq/L BUN 11 (7-18) mg/dL Creatinine 0.99 (0.60-1.30) mg/dL Estimated GFR 83 L (>89) mL/min Random Glucose 99 (74-106) mg/dL Calcium 8.4 L (8.5-10.1) mg/dL Total Bilirubin 0.3 (0.2-1.0) mg/dL AST 23 (15-37) U/L ALT 32 (12-78) U/L Alkaline Phosphatase 92 (45-117) U/L Troponin I Less than 0.02 L (0.02-0.05) ng/mL Total Protein 7.6 (6.4-8.2) g/dL Albumin 3.9 (3.4-5.0) g/dL Imaging Data Attestation: I personally reviewed and interpreted this imaging study as follows : Radiologist's impression: Chest X-Ray 10/03/18 16:19 CONCLUSION: No acute cardiopulmonary disease identified. ECG Data Attestation: I personally reviewed and interpreted this ECG as follows: Interpretation: Sinus rhythm with sinus arrhythmia, rate 81 bpm. No signs of acute ST elevations or depressions. Discharge Plan Discharge Disposition Patient Disposition: 30 Still Patient Discharge Condition Condition: Stable Discharge Details Anticipated Discharge Date: 10/03/18 Diagnosis: Chest pain Physicians Team ED Provider: Jorge Jackson Rxs /Orders / Referrals /Forms Prescriptions: No Action trazodone 50 mg Tablet 100 mg PO HS RF: 0 atorvastatin 40 mg Tablet 40 mg PO HS 15 Days Qty: 15 RF: 1 aspirin [Aspirin Low Dose] 81 mg Tablet,Delayed Release (Dr/Ec) 81 mg PO DAILY 15 Days Qty: 15 RF: 1 hydroxyzine pamoate [Vistaril] 50 mg Capsule 150 mg PO HS PRN (Reason: Insomnia) RF: 0 bupropion HCl [Wellbutrin XL] 150 mg Tablet Extended Release 24 Hr 150 mg PO QAM RF: 0 Discharge Instructions Patient Printed Instructions: Chest Pain (ED) Discharge Interventions Interventions: Vital Signs Last Done: 10/03/18 17:03 Status ED Status: With Doctor
[2018-10-03 16:40] LABS: Baso # (Auto) 0.1 th/mm3 (0.0-0.2); Baso % (Auto) 0.6 % (0.0-2.0); Eos # (Auto) 0.4 th/mm3 (0.0-0.4); Eos % (Auto) 4.5 % (0.0-4.0); Hematocrit 39.4 % (39.0-51.0); Hemoglobin 14.2 gm/dL (13.0-17.0); Lymph # (Auto) 1.9 th/mm3 (1.0-4.8); Lymph % (Auto) 22.8 % (9.0-44.0); Mean Corpuscular Hemoglobin 36.2 pg (27.0-34.0); Mean Corpuscular Volume 100.5 fL (80.0-100.0); Mean Platelet Volume 7.7 fL (7.0-11.0); Mono # (Auto) 0.4 th/mm3 (0.0-0.9); Neut # (Auto) 5.6 th/mm3 (1.8-7.7); Neut % (Auto) 67.1 % (16.0-70.0); Platelet Count 186 th/mm3 (150-450); Red Blood Count 3.92 mil/mm3 (4.50-5.90); Red Cell Distribution Width 13.8 % (11.6-17.2); White Blood Count 8.4 th/mm3 (4.0-11.0)
--- NOTE | 2018-10-03 16:53 | XR ---
EXAM DATE: 10/03/2018 4:45 PM EDT AGE/SEX: 43 years / Male INDICATIONS: Chest pain. CLINICAL DATA: This is the patient's initial encounter. Patient reports that signs and symptoms have been present for 2 days and indicates a pain score of 7/10. MEDICAL/SURGICAL HISTORY: Hypertension. Myocardial infarction. Coronary artery stent. [place] [facility] [place]. . FINDINGS: Single AP view the chest. The lungs are clear. Cardiomediastinal silhouette within normal limits. No evidence of pleural effusion or pneumothorax. CONCLUSION: No acute cardiopulmonary disease identified. Electronically signed by: Dmitry Mauricio MD 10/03/2018 4:51 PM EDT
[2018-10-03 17:00] LABS: Albumin 3.9 g/dL (3.4-5.0); Anion Gap 8 meq/L (5-15); Aspartate Aminotransferase 23 U/L (15-37); Blood Urea Nitrogen 11 mg/dL (7-18); Calcium 8.4 mg/dL (8.5-10.1); Carbon Dioxide 28.2 meq/L (21.0-32.0); Chloride 103 meq/L (98-107); Glomerular Filtration Rate 83 mL/min (>89); Glucose,Random 99 mg/dL (74-106); Sodium 139 meq/L (136-145)
[2018-10-03 17:04] LABS: Alanine Aminotransferase 32 U/L (12-78); Alkaline Phosphatase 92 U/L (45-117); Total Protein 7.6 g/dL (6.4-8.2)
[2018-10-03 17:18] LABS: Platelet Estimate Normal (Normal); Platelet Morphology Normal (Normal)
[2018-10-03] MEDS ORDERED: Acetaminophen 325 MG Tablet PO PRN (19:46)
[2018-10-03] MEDS: Morphine Inj 4 MG/ML Vial IV.CONT PRN (20:06)
[2018-10-03 20:36] LABS: Creatine Kinase 110 U/L (39-308)
[2018-10-03] MEDS ORDERED: Temazepam 15 MG Capsule PO SCH (21:00)
[2018-10-03 23:31] LABS: Creatine Kinase 105 U/L (39-308)
[2018-10-04] MEDS: Morphine Inj 4 MG/ML Vial IV.CONT PRN (03:02)
--- NOTE | 2018-10-04 07:57 | P.HPCA ---
History of Present Illness Primary Care Physician: No Primary Care Physician Chief Complaint: Chest pain History of Present Illness: 43-year-old male with known coronary artery disease, x1 cardiac stent, and current smoker presents emergency room for further evaluation of nonexertional chest pain. Onset Friday evening. Location substernal. Characterizes a gradual pressure progressively becoming worse. Radiation to shoulder blades. Duration intermittent often lasting 1 hour resolving for 20-30 minutes before returning. 6/10 in severity. No associated symptoms of nausea, vomiting, dyspnea. Associated symptom intermittent "clammy" sensation. No precipitating or relieving factors. Discomfort similar to past coronary event not as severe. Sounds lilke he was a STEMI alert December 2016, states he was "rushed" to [employer]. Recently seen and evaluated in [place] [facility] 09/17/18. Seen and evaluated during [facility] admission by Dr. Brad Nick. Luisito completed and read as nonischemic. No recent illness, fever, or injury. Recently moved from [place] 3 months ago and not established with a PCP or honey producer. Does not recall ever being started on antihypertensive medication. Endorses compliance with current medication list. Past cardiac testing 09/17/18 Lexiscan- No definite reversible perfusion defects are identified to suggest stress-induced myocardial ischemia. EF 52%. Social history Known coronary artery disease and hyperlipidemia. No known hypertension or diabetes. Current smoker 1/2 pack daily decreased from 2 packs daily. Denies alcohol. Occasional marijuana use, last use 3 weeks ago. 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 States he does not quality for disability due to clubbed feet. Family history Noncontributory for early onset cardiovascular disease. - Diagnosis (1) Chest pain of uncertain etiology (2) History of coronary artery disease (3) Hyperlipidemia (4) Tobacco abuse Review of Systems All other systems reviewed negative except as stated in HPI PMFSH - History History Provided By: Patient - Medical History Medical History: Medical History (Last Reviewed 10/04/18 @ 09:17 by ZACHARY Tavares) Club foot of both lower extremities High cholesterol Myocardial infarction - Family History Family History: Family History (Last Updated 10/04/18 @ 09:18 by ZACHARY Tavares) Father Liver cancer - Tobacco History Second Hand Smoke Exposure: Yes Tobacco Use In Past 30 Days: Yes Smoking Status: Current every day smoker Tobacco Type: Cigarettes Packs Per Day: 0.5 (Decreased from 2 packs/daily) - Alcohol History How Often Do You Have a Drink Containing Alcohol: Never - Substance Use History Substance History: Past History - Substance Use Type Marijuana Status: Early Remission Route Used: By Mouth Reason for Use: Calm Down - Travel History Recent Travel in the [place] Within the Last 8 Weeks: No Recent Travel Out of the Country Within the Last 8 Weeks: No - Immunization History Tetanus Immunization: <5 Years Medications and Allergies Active Medications: Active Medications Acetaminophen (Tylenol) 650 mg PO Q4H PRN PRN Reason: PAIN SCALE 1 TO 5 Acetaminophen (Tylenol) 500 mg PO Q4H PRN PRN Reason: HEADACHE Morphine Sulfate (Morphine Inj) 2 mg IV.CONT Q6H PRN PRN Reason: PAIN SCALE 6 TO 10 Last Admin: 10/04/18 03:02 Dose: 2 mg Nitroglycerin (Nitrostat Sl) 0.4 mg SL Q5M PRN PRN Reason: CHEST PAIN Ondansetron HCl (Zofran Inj) 4 mg IV.PUSH Q6H PRN PRN Reason: NAUSEA Sodium Chloride (Ns Flush) 2 ml IV.FLUSH UNSCH PRN PRN Reason: FLUSH AFTER USING IV ACCESS Last Admin: 10/03/18 16:30 Dose: 2 ml Sodium Chloride (Ns Flush) 2 ml IV.FLUSH PRN PRN PRN Reason: FLUSH AFTER USING IV ACCESS Sodium Chloride (Ns Flush) 2 ml IV.FLUSH BID [facility] Last Admin: 10/03/18 20:07 Dose: 2 ml Temazepam (Restoril) 15 mg PO HS [facility] Last Admin: 10/04/18 01:53 EDT Dose: Not Given Allergies Allergy/AdvReac Type Severity Reaction Status Date / Time Fish Containing Products Allergy Anaphylaxis Verified 09/13/18 16:32 iodine Allergy Anaphylaxis Verified 09/22/18 19:03 Home Medications Medication Instructions Recorded Confirmed Type trazodone 100 mg PO HS 09/23/18 10/03/18 History bupropion HCl [Wellbutrin XL] 150 mg PO QAM 10/03/18 10/03/18 History hydroxyzine pamoate [Vistaril] 150 mg PO HS PRN 10/03/18 10/03/18 History Exam Vital signs: Vital Signs 10/03/18 16:13 10/03/18 16:19 10/03/18 17:03 Temperature 97.6 F Pulse Rate 97 H 92 H 68 Respiratory Rate 22 19 Blood Pressure 167/98 H 153/92 H 148/81 H Pulse Oximetry 99 98 98 10/03/18 18:39 10/03/18 19:32 10/03/18 20:00 Temperature 97.8 F 98.1 F Pulse Rate 59 L 80 Respiratory Rate 16 18 Blood Pressure 141/78 H 139/73 Pulse Oximetry 97 97 96 10/04/18 00:00 10/04/18 04:00 Temperature 98.3 F 98 F Pulse Rate 65 58 L Respiratory Rate 18 18 Blood Pressure 130/77 133/77 Pulse Oximetry 96 96 Intake & Output 10/03/18 10/04/18 10/04/18 19:59 06:59 18:59 Intake Total Output Total 400 / 400 Balance -400 / -400 Weight Intake: Oral Output: Urine 400 / 400 Other: # Voids Date of Last Bowel Movement Weight On Admission Narrative: GENERAL: Alert WN, WD, NAD, male HEAD: NC, AT EYES: Sclera clear, conjunctiva without injection ENT: Mucous membranes pink and moist, edentulous NECK: Supple, no masses, trachea midline CV: RRR, without murmur, rub, gallop, no JVD, S1-S2. Chest wall nontender to palpation. No carotid bruits. RESP: Diminished lungs throughout bilateral, no crackles, wheeze, rhonchi, symmetrical chest rise, nonlabored, able to speak in full sentences ABD: Soft, NT, ND, no masses, positive bowel tones EXT: Pulses +2x4, no dependent edema, obvious bilateral feet deformity MS: Normal tone x4 extremities, nontender, full range of motion NEURO: CN II through CN XII grossly intact, motor strength 5/5 PSYCH: A+O x3, flat affect, appropriate speech, appropriate mood, insight and judgment SKIN: Normal turgor, normal texture, no lesions, no rashes, brisk cap refill, even hair distribution Results 10/03/18 16:24 10/03/18 16:24 Cardiac Enzymes 10/03/18 10/03/18 10/03/18 Range/Units 16:24 19:50 22:50 AST 23 (15-37) U/L Troponin I Less than 0.02 L Less than 0.02 L Less than 0.02 L (0.02-0.05) ng/mL CBC 10/03/18 Range/Units 16:24 WBC 8.4 (4.0-11.0) th/mm3 RBC 3.92 L (4.50-5.90) mil/mm3 Hgb 14.2 (13.0-17.0) gm/dL Hct 39.4 (39.0-51.0) % Plt Count 186 D (150-450) th/mm3 Neut # (Auto) 5.6 (1.8-7.7) th/mm3 Lymph # (Auto) 1.9 (1.0-4.8) th/mm3 Smith # (Auto) 0.4 (0.0-0.9) th/mm3 Eos # (Auto) 0.4 (0.0-0.4) th/mm3 Baso # (Auto) 0.1 (0.0-0.2) th/mm3 Comprehensive Metabolic Panel 10/03/18 Range/Units 16:24 Sodium 139 (136-145) meq/L Potassium 4.0 (3.5-5.1) meq/L Chloride 103 (98-107) meq/L Carbon Dioxide 28.2 (21.0-32.0) meq/L BUN 11 (7-18) mg/dL Creatinine 0.99 (0.60-1.30) mg/dL Calcium 8.4 L (8.5-10.1) mg/dL AST 23 (15-37) U/L ALT 32 (12-78) U/L Alkaline Phosphatase 92 (45-117) U/L Total Protein 7.6 (6.4-8.2) g/dL Albumin 3.9 (3.4-5.0) g/dL Intake and Output 10/03/18 10/04/18 10/04/18 23:59 06:59 14:59 Intake Total Output Total 400 / 400 Balance -400 / -400 Intake: Oral Output: Urine 400 / 400 Other: # Voids Date of Last Bowel Movement Weight Weight On Admission - Imaging and Cardiology Imaging: Impressions Chest X-Ray 10/03/18 16:19 CONCLUSION: No acute cardiopulmonary disease identified. EKG interpretations - EKG EKG results cardiology: sinus rhythm, normal axis, normal QRS, normal ST/T Caprini VTE Risk Assessment Caprini VTE Risk Assessment: No/Low Risk (score <= 1) Caprini Risk Assessment Model: Point Value = 1 Point Value = 2 Point Value = 3 Point Value = 5 Age 41-60 Minor surgery BMI > 25 kg/m2 Swollen legs Varicose veins or History of unexplained or recurrent spontaneous Oral contraceptives or hormone replacement Sepsis (< 1 month) Serious lung disease, including pneumonia (< 1 month) Abnormal pulmonary function Acute myocardial infarction Congestive heart failure (< 1 month) History of inflammatory bowel disease Medical patient at bed rest Age 61-74 Arthroscopic surgery Major open surgery (> 45 min) Laparoscopic surgery (> 45 min) Malignancy Confined to bed (> 72 hours) Immobilizing plaster cast Central venous access Age >= 75 History of VTE Family history of VTE Factor V Leiden Prothrombin [id number] Lupus anticoagulant Anticardiolipin antibodies Elevated serum homocysteine Heparin-induced thrombocytopenia Other congenital or acquired thrombophilia Stroke (< 1 month) Elective arthroplasty Hip, pelvis, or leg fracture Acute spinal cord injury (< 1 month) Prophylaxis Regimen: Total Risk Factor Score Risk Level Prophylaxis Regimen 0-1 Low Early ambulation 2 Moderate Order ONE of the following: *Sequential Compression Device (SCD) *Heparin 5000 units SQ BID 3-4 Higher Order ONE of the following medications: *Heparin 5000 units SQ TID *Enoxaparin/Lovenox 40 mg SQ daily (WT < 150 kg, CrCl > 30 mL/min) *Enoxaparin/Lovenox 30 mg SQ daily (WT < 150 kg, CrCl > 10-29 mL/min) *Enoxaparin/Lovenox 30 mg SQ BID (WT < 150 kg, CrCl > 30 mL/min) AND/OR *Sequential Compression Device (SCD) 5 or more Highest Order ONE of the following medications: *Heparin 5000 units SQ TID (Preferred with Epidurals) *Enoxaparin/Lovenox 40 mg SQ daily (WT < 150 kg, CrCl > 30 mL/min) *Enoxaparin/Lovenox 30 mg SQ daily (WT < 150 kg, CrCl > 10-29 mL/min) *Enoxaparin/Lovenox 30 mg SQ BID (WT < 150 kg, CrCl > 30 mL/min) AND *Sequential Compression Device (SCD) Assessment and Plan - Assessment (1) Chest pain of uncertain etiology Code(s): R07.89 - Other chest pain Status: Acute Plan: Admitted chest pain center. Monitor on telemetry overnight. Seen and evaluated by Dr. Taz Dick. ACS ruled out with 3 sets of EKGs and cardiac enzymes. Chest pain somewhat concerning, possible cardiac etiology. Will contact on-call honey producer to determine if patient is a candidate for cardiac catheterization due to recent normal Lexiscan 3 weeks ago. [phone] call from on-call honey producer, Dr. Tyson. Discussed case in length. Due to recent unremarkable Lexiscan, recommendations to optimize cardiac medications and discharge home. Patient would not be a candidate for cardiac catheterization until optimizing medications attempted. Dr. Dick discussed plan of care with patient in length. Instructed to return to hospital if chest pain returns. Discharged on beta-ozzie and long-acting nitrate. (2) History of coronary artery disease Code(s): Z86.79 - Personal history of other diseases of the circulatory system Status: Chronic Plan: Continue 81 mg aspirin and atorvastatin. Strongly encouraged him to establish with a local honey producer. Discussed in length free or [id number]-[id number] clinics such as [facility] and [facility] available to him. Strongly encouraged smoking sensation. (3) Hyperlipidemia Code(s): E78.5 - Hyperlipidemia, unspecified Status: Chronic Plan: Continue atorvastatin. (4) Tobacco abuse Code(s): Z72.0 - Tobacco use Status: Chronic Plan: Strongly encouraged and stressed importance of tobacco cessation. Instructed to quit smoking. Contact information for Tobacco [facility] [place] program provided upon discharge. H&P: Quality - VTE Deep Vein Thrombosis/Pulmonary Embolism Present on Admission: No (3) Hyperlipidemia Qualifiers: Hyperlipidemia type: unspecified Qualified Code(s): E78.5 - Hyperlipidemia, unspecified
[2018-10-04] MEDS ORDERED: Acetaminophen 500 MG Tablet PO PRN (08:00)
[2018-10-04 08:14] VITALS: BP 135/78; PULSE 55; RESP 14; TEMP 98.3
[2018-10-04 08:59] VITALS: O2SAT 92
--- NOTE | 2018-10-04 09:34 | P.PNCA ---
Subjective Interval history: 43-year-old gentleman presents with recurring chest discomfort similar to the pain he had with a heart attack in December 2016. He was in [place] a year ago when he developed similar chest pain and presented to the emergency room. He was told he was having a heart attack and was taken directly to the [facility]. He subsequently received a stent to his right coronary artery and did well post stenting. He followed with his meat smoker there until he moved here but has not established with anyone locally. He also has hypertension hyperlipidemia and was a heavy smoker. He has been working on smoking and is down to half a pack a day. He also has a history of anxiety depression and is following at [facility] and is on medications. In addition he was born with clubfeet and underwent extensive surgery to both feet so walking is a difficult proposition. 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 A day ago he had sudden onset of left chest discomfort described as someone sitting on his chest and radiating to both shoulder blades. It was described as a 6 7 out of 10. It lasted for about an hour and was associated with some diaphoresis but then resolved. It recurred again in the morning of his admission and at that time he came to the emergency room. It is pertinent to note that he was in the chest pain center about a month ago underwent a Lexiscan at that time which was negative. However in view of his known history and the fact of the similarity of the pain currently is very concerning. A call would be placed to the meat smoker on-call for further discussion and consideration of possible definitive catheterization. Medications and Allergies Active Medications: Active Medications Acetaminophen (Tylenol) 650 mg PO Q4H PRN PRN Reason: PAIN SCALE 1 TO 5 Acetaminophen (Tylenol) 500 mg PO Q4H PRN PRN Reason: HEADACHE Morphine Sulfate (Morphine Inj) 2 mg IV.CONT Q6H PRN PRN Reason: PAIN SCALE 6 TO 10 Last Admin: 10/04/18 03:02 Dose: 2 mg Nitroglycerin (Nitrostat Sl) 0.4 mg SL Q5M PRN PRN Reason: CHEST PAIN Ondansetron HCl (Zofran Inj) 4 mg IV.PUSH Q6H PRN PRN Reason: NAUSEA Sodium Chloride (Ns Flush) 2 ml IV.FLUSH UNSCH PRN PRN Reason: FLUSH AFTER USING IV ACCESS Last Admin: 10/03/18 16:30 Dose: 2 ml Sodium Chloride (Ns Flush) 2 ml IV.FLUSH PRN PRN PRN Reason: FLUSH AFTER USING IV ACCESS Sodium Chloride (Ns Flush) 2 ml IV.FLUSH BID [facility] Last Admin: 10/03/18 20:07 Dose: 2 ml Temazepam (Restoril) 15 mg PO HS [facility] Last Admin: 10/04/18 01:53 EDT Dose: Not Given Allergies Allergy/AdvReac Type Severity Reaction Status Date / Time Fish Containing Products Allergy Anaphylaxis Verified 09/13/18 16:32 iodine Allergy Anaphylaxis Verified 09/22/18 19:03 Home Medications Medication Instructions Recorded Confirmed Type trazodone 100 mg PO HS 09/23/18 10/03/18 History bupropion HCl [Wellbutrin XL] 150 mg PO QAM 10/03/18 10/03/18 History hydroxyzine pamoate [Vistaril] 150 mg PO HS PRN 10/03/18 10/03/18 History Physical Exam Vital signs: Vital Signs 10/03/18 16:13 10/03/18 16:19 10/03/18 17:03 Temperature 97.6 F Pulse Rate 97 H 92 H 68 Respiratory Rate 22 19 Blood Pressure 167/98 H 153/92 H 148/81 H Pulse Oximetry 99 98 98 10/03/18 18:39 10/03/18 19:32 10/03/18 20:00 Temperature 97.8 F 98.1 F Pulse Rate 59 L 80 Respiratory Rate 16 18 Blood Pressure 141/78 H 139/73 Pulse Oximetry 97 97 96 10/04/18 00:00 10/04/18 04:00 10/04/18 08:00 Temperature 98.3 F 98 F 98.3 F Pulse Rate 65 58 L 55 L Respiratory Rate 18 18 14 Blood Pressure 130/77 133/77 135/78 Pulse Oximetry 96 96 95 10/04/18 08:58 Temperature Pulse Rate Respiratory Rate Blood Pressure Pulse Oximetry 92 L Intake & Output 10/03/18 10/04/18 10/04/18 19:59 06:59 18:59 Intake Total Output Total 400 / 400 Balance -400 / -400 Weight Intake: Oral Output: Urine 400 / 400 Other: # Voids Date of Last Bowel Movement Weight On Admission Narrative: Well-nourished well-developed head normocephalic atraumatic Eyes PERRLA EOMI sclera clear Mouth mucous membranes moist tongue well papillated is absent most of his teeth but no lesions Neck supple no JVD masses nodes are very Chest good breath sounds no tenderness no rales wheezes or rhonchi Cardiovascular regular sinus rhythm no gallops rubs there is a very soft 1/6 systolic murmur Abdomen soft nontender no guarding or rebound Extremities no clubbing cyanosis edema however patient has extensive deformity both feet secondary to surgery to rectify club foot deformity Results 10/03/18 16:24 10/03/18 16:24 Cardiac Enzymes 10/03/18 10/03/18 10/03/18 Range/Units 16:24 19:50 22:50 AST 23 (15-37) U/L Troponin I Less than 0.02 L Less than 0.02 L Less than 0.02 L (0.02-0.05) ng/mL CBC 10/03/18 Range/Units 16:24 WBC 8.4 (4.0-11.0) th/mm3 RBC 3.92 L (4.50-5.90) mil/mm3 Hgb 14.2 (13.0-17.0) gm/dL Hct 39.4 (39.0-51.0) % Plt Count 186 D (150-450) th/mm3 Neut # (Auto) 5.6 (1.8-7.7) th/mm3 Lymph # (Auto) 1.9 (1.0-4.8) th/mm3 Scott # (Auto) 0.4 (0.0-0.9) th/mm3 Eos # (Auto) 0.4 (0.0-0.4) th/mm3 Baso # (Auto) 0.1 (0.0-0.2) th/mm3 Comprehensive Metabolic Panel 10/03/18 Range/Units 16:24 Sodium 139 (136-145) meq/L Potassium 4.0 (3.5-5.1) meq/L Chloride 103 (98-107) meq/L Carbon Dioxide 28.2 (21.0-32.0) meq/L BUN 11 (7-18) mg/dL Creatinine 0.99 (0.60-1.30) mg/dL Calcium 8.4 L (8.5-10.1) mg/dL AST 23 (15-37) U/L ALT 32 (12-78) U/L Alkaline Phosphatase 92 (45-117) U/L Total Protein 7.6 (6.4-8.2) g/dL Albumin 3.9 (3.4-5.0) g/dL Intake and Output 10/03/18 10/04/18 10/04/18 23:59 06:59 14:59 Intake Total Output Total 400 / 400 Balance -400 / -400 Intake: Oral Output: Urine 400 / 400 Other: # Voids Date of Last Bowel Movement Weight Weight On Admission - Imaging and Cardiology Imaging: Impressions Chest X-Ray 10/03/18 16:19 CONCLUSION: No acute cardiopulmonary disease identified. Assessment and Plan - Assessment (1) Atypical chest pain Code(s): R07.89 - Other chest pain Status: Acute Plan: Admitted chest pain center. Monitor on telemetry overnight. ACS ruled out 3 sets of EKGs and cardiac enzymes. Will be seen evaluated by Dr. Taz Dick. Recent cardiac testing reviewed. Does not recall ever being started on a beta -ozzie or MERLY inhibitor. Likely no further cardiac testing. This will be determined after evaluation by meat smoker. Discussed plan of care with RN. This patient has a known history of coronary artery disease presents with a suggestive story however he had a negative nuclear scan only 3 weeks ago. After discussion with meat smoker decision was made to discharge him on increased medication with the understanding that if he persists with discomfort he is to return and will be considered for admission for cath. He feels it is imperative that we try medications first however. (2) History of coronary artery disease Code(s): Z86.79 - Personal history of other diseases of the circulatory system Status: Chronic Plan: Continue 81 mg aspirin and atorvastatin. Strongly encouraged him to establish with a local meat smoker. Discussed in length free or [id number]-[id number] clinics such as [facility] and [facility] available to him. Strongly encouraged smoking sensation. (3) Hyperlipidemia Code(s): E78.5 - Hyperlipidemia, unspecified Status: Acute (4) Tobacco abuse Code(s): Z72.0 - Tobacco use Status: Acute
[2018-10-04] MEDS ORDERED: Isosorbide Mononitrate 30 MG ER 24HR Tablet (Imdur) PO ONE (10:00)
[2018-10-04] MEDS ORDERED: Metoprolol Tartrate 25 MG Tablet PO SCH (10:00)
--- NOTE | 2018-10-04 10:09 | ECG ---
Date Performed: 10/03/2018 Time Performed: 23:07:32 PTAGE: 43 years EKG: SINUS BRADYCARDIA BORDERLINE ECG No significant change PREVIOUS TRACING : 10/03/2018 23.06 DOCTOR: Taz Dick Interpretating Date/Time 10/04/2018 10:08:36
--- NOTE | 2018-10-04 23:10 | ECG ---
Date Performed: 10/03/2018 Time Performed: 19:55:38 PTAGE: 43 years EKG: Sinus rhythm NORMAL ECG PREVIOUS TRACING : 10/03/2018 19.52 Since the previous tracing, no significant change noted DOCTOR: Fabian Menard Interpretating Date/Time 10/04/2018 23:09:45
--- NOTE | 2018-10-04 23:24 | ECG ---
Date Performed: 10/03/2018 Time Performed: 16:22:48 PTAGE: 43 years EKG: Sinus rhythm WITH SINUS ARRHYTHMIA BORDERLINE LEFT AXIS DEVIATION BORDERLINE ECG INTERPRETATION BASED ON A DEFAUL T AGE OF 42 YEARS PREVIOUS TRACING : 09/13/2018 22.11 Compared to previous tracing, rate has increased DOCTOR: Fabian Menard Interpretating Date/Time 10/04/2018 23:23:06
== END 2018-10-04 11:45 | disposition home or self-care (01) ==
LOC: NEPC 16:11 → NEDA 16:11 → NEPHCDU 18:07
PROVIDERS: ADMIT Internal Medicine Interventional Cardiology; ATTEND Internal Medicine Interventional Cardiology